=== PATIENT | female | born 1930 | race Caucasian/White ===

== ENCOUNTER 2017-05-02 05:04 | Day surgery (SDC) | payer OTHER ==
[2017-04-24 11:48] VITALS: BMI 27.0
--- NOTE | 2017-04-24 12:21 | PAT Medication Instructions ---
Service Date Apr 24, 2017. Current Home Medication List Aspirin (Aspirin Ec), 81 MG PO HS Atenolol (Tenormin), 50 MG PO QAM Atorvastatin (Lipitor), 20 MG PO HS Cyanocobalamin (Vitamin B-12), 1,000 MCG PO QAM Fluticasone Prop/Salmeterol (Advair Diskus 500/50 60 Dose), 1 PUFF INH BID Glyburide (Glyburide), 1.25 MG PO QAM Hydrochlorothiazide (Hctz), 25 MG PO QAM Lisinopril (Prinivil), 20 MG PO QAM Multivitamin (Multivitamin), 1 TAB PO QAM Oxycodone/Acetaminophen 5MG/325MG (Percocet 5MG/325MG), 1 TABLET PO Q6H PRN for Pain Potassium (Potassium), 1 TAB PO HS Medication Instructions For Your Scheduled Surgery - Hold the following medications the morning of surgery: Lisinopril (Prinivil), 20 MG PO QAM Glyburide (Glyburide), 1.25 MG PO QAM Hydrochlorothiazide (Hctz), 25 MG PO QAM Multivitamin (Multivitamin), 1 TAB PO QAM Cyanocobalamin (Vitamin B-12), 1,000 MCG PO QAM - Take the following medications the morning of surgery with a sip of water: Oxycodone/Acetaminophen 5MG/325MG (Percocet 5MG/325MG), 1 TABLET PO Q6H PRN for Pain (okay to take up to 4 hours prior to surgery if needed) Fluticasone Prop/Salmeterol (Advair Diskus 500/50 60 Dose), 1 PUFF INH BID Atenolol (Tenormin), 50 MG PO QAM - Take the following medications as scheduled the night before surgery: Potassium (Potassium), 1 TAB PO HS Oxycodone/Acetaminophen 5MG/325MG (Percocet 5MG/325MG), 1 TABLET PO Q6H PRN for Pain (if needed) Fluticasone Prop/Salmeterol (Advair Diskus 500/50 60 Dose), 1 PUFF INH BID Atorvastatin (Lipitor), 20 MG PO HS Aspirin (Aspirin Ec), 81 MG PO HS (okay to continue per surgeon) If you have any questions please call us at [phone] or [phone] or [phone]
[2017-04-24 12:52] LABS: BASO % 0.5 %; BASO ABS # 0.05 K/uL (0-0.2); COMPLETE YES; HEMATOCRIT 34.5 % (37-47); IG% 0.4 %; LYMPH % 20.5 %; LYMPH ABS # 1.87 K/uL (1.2-3.4); MEAN CELL VOLUME 84.6 fL (80-100); MEAN CORPUSCULAR HEMOGLOBIN 27.5 pg (25-34); MEAN CORPUSCULAR HGB CONC 32.5 g/dl (32-36); MEAN PLATELET VOLUME 8.4 fL (7.4-10.4); MONO % 5.9 %; NEUT % 70.7 %; PLATELET COUNT 503 K/uL (130-400); RED BLOOD COUNT 4.08 M/uL (4.2-5.4); WHITE BLOOD COUNT 9.12 K/uL (4.8-10.8)
[2017-04-24 13:08] LABS: INR 1.1 (0.9-1.1); PARTIAL THROMBOPLASTIN RATIO 1.1; PROTHROMBIN TIME (PATIENT) 11.3 SECONDS (9.0-12.0)
--- NOTE | 2017-04-24 13:12 | DIAGNOSTIC IMAGING REPORT ---
CHEST PREADMISSION(PA/LAT) CLINICAL HISTORY: PAT preoperative evaluation COMPARISON STUDY: No previous studies for comparison. FINDINGS: Mild emphysematous change. No focal infiltrate. No evidence for cardiac enlargement. Postoperative changes to the thoracolumbar region IMPRESSION: Mild emphysematous change. No acute process. The above report was generated using voice recognition software. It may contain grammatical, syntax or spelling errors. Electronically signed by: Jean Rawls M.D. 04/24/2017 1:10 PM Dictated Date/Time: 04/24/2017 1:09 PM
--- NOTE | 2017-04-28 09:13 | History and Physical ---
History & Physical Date Apr 28, 2017. Chief Complaint Left shoulder pain History of Present Illness The patient is a 86 year old female with complaints of left shoulder pain. She describes the pain as aching, sharp and throwbbing. It occurs constantly. She has difficulty with her ADL's. She has tried cortisone injections, PT, and NSAIDs with little relief. She has an MRI that demonstrates a suspected tear of the supraspinatus but due to imagine quality it is difficult to detect. Past Medical/Surgical History PMHx: Hypertension Hypercholesterolemia Irregular heart beat Shortness of breath with walking NIDDM PSHx: Neck surgery Lower Back surgery hysterectomy Additional History Hepatic Disease: No Endocrine Disorder: Yes Kidney Disease: No Hypertension: No Heart Disease: No Bleeding Tendencies: No Infectious Diseases: No Allergies Coded Allergies: Amoxicillin (Verified Allergy, Mild, rash, 04/24/17) Iodinated Diagnostic Agents (Verified Allergy, Mild, hives, 04/24/17) Home Medications Scheduled Aspirin (Aspirin Ec), 81 MG PO HS Atenolol (Tenormin), 50 MG PO QAM Atorvastatin (Lipitor), 20 MG PO HS Cyanocobalamin (Vitamin B-12), 1,000 MCG PO QAM Fluticasone Prop/Salmeterol (Advair Diskus 500/50 60 Dose), 1 PUFF INH BID Glyburide (Glyburide), 1.25 MG PO QAM Hydrochlorothiazide (Hctz), 25 MG PO QAM Lisinopril (Prinivil), 20 MG PO QAM Multivitamin (Multivitamin), 1 TAB PO QAM Potassium (Potassium), 1 TAB PO HS Scheduled PRN Oxycodone/Acetaminophen 5MG/325MG (Percocet 5MG/325MG), 1 TABLET PO Q6H PRN for Pain Physical Examination Skin: warm/dry, no rash Eyes: normal inspection, EOMI ENT: normal ENT inspection Head: normocephalic, atraumatic Neck: supple Respiratory/Chest: lungs clear Cardiovascular: + irregularly irregular Abdomen / GI: normal bowel sounds, non tender Extremities: normal inspection, + pertinent finding (Decreased ROM of left shoulder. decreased strength. 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 She has failed conservative measure of cortisone injection, NSAIDs and PT. Risks and benefits to surgery were discuss that include but not limit to infection, DVT, pain, stiffness, need for revision surgery, failure to relieve all symptoms, damage to blood vessels, damage to nerves, risks of anesthesia were all discussed with the patient and she wishes to proceed. All questions were answered to her satisfaction.
[~2017-05-02] VITALS: Ht 149.9 cm; Wt 62.1 kg
[~2017-05-02 05:04] MED LIST: ADVIN50/60 INH; ASPI81TA28 PO; ATEN50TA8 PO; ATOR-22 PO; CYAN10005 PO; GLYB1.257 PO; HYDR25TA4 PO; LISI20TA3 PO; MULT-506 PO; OXYC-57 PO; POTA99TA PO
[2017-05-02 05:45] VITALS: BP 211/91; PULSE 61; TEMP 36.8; O2SAT 98; Ht 149.9 cm; Wt 62.1 kg
[2017-05-02] MEDS ORDERED: CLINDAMYCIN 600 MG/54 ML D5W IV SCH (06:00)
[2017-05-02] MEDS ORDERED: LACTATED RINGER'S 1000ML 1,000 ML IV SCH (06:00)
--- NOTE | 2017-05-02 06:42 | History & Physical Bridge Note ---
H&P Re-Evaluation Bridge Note: I have examined the patient, reviewed the History & Physical and in the interval since the performance of the History & Physical I have noted the following changes of clinical significance: No changes noted
[2017-05-02] MEDS ORDERED: ROPIVACAINE 0.5% 5 MG/ML 30 ML VIAL ONE (07:14)
[2017-05-02] MEDS ORDERED: LIDOCAINE/EPINEPHRINE 1% 20 ML VIAL ONE (07:16)
[2017-05-02] MEDS ORDERED: ONDANSETRON INJ 2 MG/ML 2 ML VIAL ONE (07:16)
[2017-05-02] MEDS ORDERED: LIDOCAINE HCL 2% 2 ML VIAL (20MG/ML) ONE (07:16)
[2017-05-02] MEDS ORDERED: MIDAZOLAM HCL 1 MG/ML 2ML VIAL ONE (07:16)
[2017-05-02] MEDS ORDERED: BUPIVACAINE 0.5 % 5 MG/1 ML MPF 30ML VIAL ONE (07:16)
[2017-05-02] MEDS ORDERED: FENTANYL CITRATE INJ 50 MCG/1 ML 2 ML VIAL ONE (07:16)
[2017-05-02] MEDS ORDERED: DEXAMETHASONE SOD INJ 4 MG/ML VIAL ONE (07:16)
[2017-05-02] MEDS ORDERED: EpINEphrine HCL INJ 1 MG/ML 5ML SYRINGE ONE (07:16)
[2017-05-02] MEDS ORDERED: PROPOFOL IV EMULSION 10 MG/ML 20 ML VIAL IV ONE (07:16)
[2017-05-02] MEDS ORDERED: ATROPINE SULFATE 0.1 MG/ML 5ML SYR IV PRN (07:30)
[2017-05-02] MEDS ORDERED: FENTANYL CITRATE INJ 50 MCG/1 ML 2 ML VIAL IV PRN (07:30)
[2017-05-02] MEDS ORDERED: ONDANSETRON INJ 2 MG/ML 2 ML VIAL IV PRN ×2 (07:30→08:45)
[2017-05-02] MEDS ORDERED: EpHEDrine SULFATE INJ 50 MG/ML AMP IV PRN (07:30)
[2017-05-02] MEDS ORDERED: ROCURONIUM BROMIDE 10 MG/ML 5 ML VIAL ONE (07:50)
[2017-05-02] MEDS ORDERED: EpHEDrine SULFATE 50MG/5ML SYR ONE (07:51)
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
[2017-05-02] MEDS ORDERED: OXYSR10 PO (08:41)
[2017-05-02] MEDS ORDERED: OXYCODONE/ACETAMINOPHEN 5-325 TAB PO PRN (08:45)
[2017-05-02] MEDS ORDERED: ACETAMINOPHEN 325 MG TAB PO PRN (08:45)
--- NOTE | 2017-05-02 08:47 | Discharge Instructions ---
Discharge Instructions Date of Service May 02, 2017. Admission Reason for Admission: Left Shoulder Rotator Cuff Tear, Impingement Syndr Discharge Discharge Diagnosis / Problem: S/P left shoulder RC debridement, open distal clavicle excision Discharge Goals Goal(s): Decrease discomfort, Improve function Activity Recommendations Activity Limitations: per Instructions/Follow-up section . Instructions / Follow-Up Instructions / Follow-Up [facility] DISCHARGE INSTRUCTIONS: SHOULDER ARTHROSCOPY with or without Distal Clavicle Excision SELF CARE INSTRUCTIONS AFTER: A. You are allowed to use your arm actively as comfort allows. Recommend NOT doing repetitive overhead activity or heavy lifting. B. You should start Physical Therapy within 1-3 days from your surgery. You will be provided a prescription with specific restrictions, if needed, at time of discharge. C. You can discontinue the sling as comfort allows within one to two days after surgery. A. At 48 hours post-operatively, you may change your dressing. Use band-aids and change daily. You are allowed to shower at this time and get the incision area wet, but DO NOT soak or submerge incision area in water. (No baths, swimming pools, hot tubs) B. Do NOT apply soap or any ointment/lotions directly over incision. C. You may use ice as needed to operative shoulder SPECIAL CARE INSTRUCTIONS: VERY IMPORTANT TO READ AND REVIEW A. There are a few signs you need to watch for after you are home. Call [facility] at [phone] if you experience any of the following: a. Increased severe shoulder pain. Some pain is expected especially when you exercise b. Increased swelling in your shoulder or arm; pain or swelling in either upper extremity. (Note: swelling and stiffness is normal and expected for several weeks post op, depending on type of shoulder surgery you had). c. Any fluid or drainage from the incision; redness of the incision. d. Shortness of breath or chest pain. B. Please call [facility] at [phone] if you have any questions or concerns about your operation or recovery. C. Call your physician if: a. Temperature is greater than 101 degrees (F). b. Pain is not relieved by prescribed pain medications. c. Increase drainage or redness from incision. d. Unanswered questions or concerns. D. Pain Medication: a. You will be prescribed pain medication upon discharge that should last till your first post-operative appointment. - Continue to take your Percocet as prescribed. You will also be prescribed Oxycotin which is taken every 12 hours to help with pain control. b. You may also take Advil or Ibuprofen between medication doses if you do not have any contraindication to taking them. c. You may also take Advil or Ibuprofen in place of your pain medication if the pain is tolerable. d. If you experience nausea and/or skin rash, discontinue this medication and contact our office for an alternative medication. e. Caution- narcotic pain medication can cause constipation. FOLLOW UP VISIT: Please call [facility] at [phone] to schedule a follow up appointment 10-14 days from your surgery date. Current Hospital Diet Patient's current hospital diet: Regular Diet Discharge Diet Recommended Diet: Regular Diet Procedures Procedures Performed: Left Shoulder Arthroscopic Rotator Cuff Debridement, Open Distal Clavicle Excision Pending Studies Studies pending at discharge: no Medical Emergencies . Who to Call and When: Medical Emergencies: If at any time you feel your situation is an emergency, please call 911 immediately. . Non-Emergent Contact Non-Emergency issues call your: Surgeon Call Non-Emergent contact if: temperature is above 101.5, your pain is worsening, wound has increased drainage, wound has increased redness . "Provider Documentation" section prepared by Cristian Gilliam. . VTE Core Measure Inpt VTE Proph given/why not?: Treatment not indicated [place] Drug Monitoring Program Search Results: patient reviewed within database, no issues identified
[2017-05-02 09:25] VITALS: BP 159/71; PULSE 66; TEMP 35.7; O2SAT 96
--- NOTE | 2017-05-02 09:30 | Anesthesiology Progress Note ---
Anesthesia Post Op Note Date & Time May 02, 2017 at 09:30 Vital Signs Pain Intensity: 0 Vital Signs Past 12 Hours Date Time Temp Pulse Resp B/P (MAP) Pulse Ox O2 Delivery O2 Flow Rate FiO2 05/02/17 09:13 66 18 05/02/17 09:13 67 18 99 05/02/17 09:11 138/73 05/02/17 09:08 71 19 05/02/17 09:08 70 19 99 05/02/17 09:06 137/60 05/02/17 09:06 36.0 68 20 137/60 99 Nasal Cannula 2 05/02/17 09:03 71 18 99 05/02/17 09:03 71 18 05/02/17 09:02 70 22 05/02/17 09:02 70 22 99 05/02/17 09:01 140/60 05/02/17 08:57 72 23 05/02/17 08:57 72 23 99 05/02/17 08:56 133/68 05/02/17 08:52 74 21 99 05/02/17 08:52 77 21 05/02/17 08:51 139/64 05/02/17 08:47 77 19 05/02/17 08:47 77 19 133/61 98 05/02/17 08:42 78 24 05/02/17 08:42 77 24 96 05/02/17 08:41 149/60 05/02/17 08:38 127/52 05/02/17 08:37 75 14 05/02/17 08:37 75 14 05/02/17 08:37 36.0 78 16 127/52 98 Nasal Cannula 2 05/02/17 05:45 36.8 61 20 211/91 (131) 98 Room Air Notes Mental Status: alert / awake / arousable, participated in evaluation Pt Amnestic to Procedure: Yes Nausea / Vomiting: adequately controlled Pain: adequately controlled Airway Patency, RR, SpO2: stable & adequate BP & HR: stable & adequate Hydration State: stable & adequate Anesthetic Complications: no major complications apparent
[2017-05-02 09:55] VITALS: BP 170/80; PULSE 67; TEMP 36; O2SAT 93
[2017-05-02 10:25] VITALS: BP 153/72; PULSE 63; O2SAT 93
== END 2017-05-02 11:15 | disposition home or self-care (01) ==
LOC: C.ACU 05:04
PROVIDERS: ATTEND Orthopaedic Surgery
DX: S42.002K Fracture of unspecified part of left clavicle, subsequent encounter for fracture with nonunion (principal); M75.102 Unspecified rotator cuff tear or rupture of left shoulder, not specified as traumatic; E78.00 Pure hypercholesterolemia, unspecified; E11.9 Type 2 diabetes mellitus without complications; Z79.82 Long term (current) use of aspirin; R00.2 Palpitations; Z98.1 Arthrodesis status; Z98.41 Cataract extraction status, right eye; Z98.42 Cataract extraction status, left eye; M19.90 Unspecified osteoarthritis, unspecified site; N18.2 Chronic kidney disease, stage 2 (mild); I12.9 Hypertensive chronic kidney disease with stage 1 through stage 4 chronic kidney disease, or unspecified chronic kidney disease; J44.9 Chronic obstructive pulmonary disease, unspecified; V49.9XXD Car occupant (driver) (passenger) injured in unspecified traffic accident, subsequent encounter